=== PATIENT | female | born 1955 | race Two or more races ===

== ENCOUNTER 2016-12-10 15:55 | Emergency (ER) | payer OTHER ==
--- NOTE | 2016-12-10 17:39 | ED ---
General Adult HPI - General Chief complaint: Back Pain/Injury Stated complaint: Back Pain, Abnormal EKG Time Seen by Provider: 12/10/16 16:30 Source: patient, RN notes reviewed Mode of arrival: ambulatory Limitations: no limitations - History of Present Illness Initial comments: This is a 61-year-old female who presents to the emergency complaining that since last night at 5:00 after eating some ribs she was unable to swallow any water or food. Patient states that continued throughout the day today and finally tonight she decided to come in to be evaluated. Patient states she's even had to cough up her saliva. Patient states it also hurts when she swallows anything. Patient denies any difficulty breathing or shortness of breath. Patient denies any other symptoms. Patient states this has not happened in the past per patient doesn't believe she got any bones in the food but she states it might be possible. Patient denies any recent fever or chills. - Related Data Home Medications Medication Instructions Recorded Confirmed Levothyroxine Sodium [Synthroid] 100 mcg PO DAILY 12/10/16 12/10/16 Losartan-Hctz 50-12.5 mg [Hyzaar 1 tab PO DAILY 12/10/16 12/10/16 50-12.5] Potassium Chloride ER [K-Dur 10] 10 meq PO DAILY 12/10/16 12/10/16 Simvastatin(Unknown) 1 tab PO DAILY 12/10/16 12/10/16 Allergies Allergy/AdvReac Type Severity Reaction Status Date / Time No Known Allergies Allergy Unverified 12/10/16 17:16 Review of Systems ROS Statement: Those systems with pertinent positive or pertinent negative responses have been documented in the HPI. ROS Other: All systems not noted in ROS Statement are negative. Past Medical History Past Medical History: Hyperlipidemia, Hypertension, Thyroid Disorder History of Any Multi-Drug Resistant Organisms: None Reported Past Surgical History: Tubal Ligation Past Psychological History: No Psychological Hx Reported Smoking Status: Current every day smoker Past Alcohol Use History: Rare Past Drug Use History: None Reported General Exam - General Exam Comments Initial Comments: GENERAL: Patient is well-developed and well-nourished. Patient is nontoxic and well- hydrated and is in mild distress. ENT: Neck is soft and supple. No significant lymphadenopathy is noted. Oropharynx is clear. Moist mucous membranes. Neck has full range of motion without eliciting any pain. EYES: The sclera were anicteric and conjunctiva were pink and moist. Extraocular movements were intact and pupils were equal round and reactive to light. Eyelids were unremarkable. PULMONARY: Unlabored respirations. Good breath sounds bilaterally. No audible rales rhonchi or wheezing was noted. CARDIOVASCULAR: There is a regular rate and rhythm without any murmurs gallops or rubs. ABDOMEN: Soft and nontender with normal bowel sounds. No palpable organomegaly was noted. There is no palpable pulsatile mass. SKIN: Skin is clear with no lesions or rashes and otherwise unremarkable. NEUROLOGIC: Patient is alert and oriented x3. Cranial nerves II through XII are grossly intact. Motor and sensory are also intact. Normal speech, volume and content. Symmetrical smile. MUSCULOSKELETAL: Normal extremities with adequate strength and full range of motion. No lower extremity swelling or edema. No calf tenderness. LYMPHATICS: No significant lymphadenopathy is noted PSYCHIATRIC: Normal psychiatric evaluation. Limitations: no limitations Course Vital Signs 12/10/16 12/10/16 12/10/16 15:56 18:29 19:29 Temperature 97.6 F 97.1 F L Pulse Rate 71 73 67 Respiratory 20 17 16 Rate Blood Pressure 211/103 181/104 145/81 O2 Sat by Pulse 97 95 98 Oximetry Medical Decision Making - Medical Decision Making I gave the patient Valium and Reglan as well as nitroglycerin sublingual and glucagon. After a few minutes it went back to reevaluate the patient patient was able to swallow water any cello any crackers. EKG was done on this patient showed a normal sinus rhythm at 62 bpm AL interval is 150 QRS is 96 QT interval is 416 QTC is 422 patient's EKG showed no ST segment elevation or depression or T-wave abdomen is noted. Disposition Clinical Impression: Esophageal foreign body Disposition: HOME SELF-CARE Condition: Good Instructions: Esophageal Foreign Body (ED) Additional Instructions: Patient should follow-up with gastroenterology. Referrals: Kamaljit Mcleod DO [Primary Care Provider] - 1-2 days Time of Disposition: 19:19
--- NOTE | 2016-12-10 17:57 | XR ---
EXAMINATION TYPE: XR soft tissue neck DATE OF EXAM: 12/10/2016 5:53 PM COMPARISON: NONE HISTORY: Difficulty swallowing TECHNIQUE: 2 views FINDINGS: The epiglottis appears normal. Subglottic trachea appears normal. Tonsils and adenoids appe ar normal. Cervical spine appears intact. IMPRESSION: Negative cervical soft tissue exam.
[2016-12-10] MEDS ORDERED: METOCLOPRAMIDE 5 MG/ML 2 ML VIAL IVP STA (18:03)
[2016-12-10] MEDS ORDERED: NITROGLYCERIN SL TABS 0.4 MG TAB SUBLINGUAL STA (18:03)
[2016-12-10] MEDS ORDERED: GLUCAGON 1 MG/ML VIAL IVP STA (18:03)
[2016-12-10] MEDS ORDERED: DIAZEPAM 5 MG/ML 2 ML SYRINGE IVP STA (18:03)
[2016-12-10 19:31] VITALS: BP 145/81; PULSE 67; RESP 16; TEMP 97.1
== END 2016-12-10 19:28 | disposition home or self-care (01) ==
LOC: EC 15:55
DX: T18.108A Unspecified foreign body in esophagus causing other injury, initial encounter (principal); R05 Cough; I10 Essential (primary) hypertension; E78.5 Hyperlipidemia, unspecified; E07.9 Disorder of thyroid, unspecified; F17.200 Nicotine dependence, unspecified, uncomplicated; Z79.899 Other long term (current) drug therapy
CPT/HCPCS: 93005; 70360; 99283; 96374; 96375; J1610; J2765; J3360

== ENCOUNTER 2017-12-02 08:42 | Emergency (ER) | payer OTHER ==
[2017-12-02] MEDS ORDERED: MECLIZINE 12.5 MG TAB PO STA (09:27)
[2017-12-02] MEDS ORDERED: LORazepam 1 MG TAB PO STA (09:29)
[2017-12-02 10:19] VITALS: RESP 20
[2017-12-02 10:20] LABS: Basophils # (A) 0.1 k/uL (0-0.2); Basophils % (A) 1 %; Eosinophils % (A) 1 %; HCT 40.9 % (34.0-46.0); HGB 13.8 gm/dL (11.4-16.0); Lymphocytes # (A) 1.4 k/uL (1.0-4.8); Lymphocytes % (A) 26 %; MCH 28.6 pg (25.0-35.0); MCHC 33.8 g/dL (31.0-37.0); MCV 84.6 fL (80.0-100.0); Mean Platelet Volume 6.7; Monocytes # (A) 0.3 k/uL (0-1.0); Monocytes % (A) 6 %; Neutrophils # (A) 3.5 k/uL (1.3-7.7); Neutrophils % (A) 65 %; Platelet Count 339 k/uL (150-450); RBC 4.84 m/uL (3.80-5.40); RDW 12.6 % (11.5-15.5); WBC 5.4 k/uL (3.8-10.6)
[2017-12-02 10:28] LABS: ALT 64 U/L (9-52); AST 41 U/L (14-36); Albumin 4.6 g/dL (3.5-5.0); Alkaline Phosphatase 96 U/L (38-126); Anion Gap 11 mmol/L; Blood Urea Nitrogen 13 mg/dL (7-17); Calcium 9.8 mg/dL (8.4-10.2); Carbon Dioxide 29 mmol/L (22-30); Chloride 101 mmol/L (98-107); Glucose 107 mg/dL (74-99); Potassium 3.9 mmol/L (3.5-5.1); Sodium 141 mmol/L (137-145); Total Bilirubin 0.6 mg/dL (0.2-1.3)
--- NOTE | 2017-12-02 10:30 | XR ---
EXAMINATION TYPE: XR chest 1V portable DATE OF EXAM: 12/02/2017 COMPARISON: NONE HISTORY: Pneumonia TECHNIQUE: Single frontal view of the chest is obtained. FINDINGS: No acute consolidation. No pleural effusion or pneumothorax. No overt failure. Arthropathy of the shoulders. IMPRESSION: No acute process.
--- NOTE | 2017-12-02 10:36 | CT ---
EXAMINATION TYPE: CT brain wo con DATE OF EXAM: 12/02/2017 COMPARISON: NONE HISTORY: 62-year-old female Dizziness with nausea. Positive HTN w/meds. No prior history of CVA/TIA TECHNIQUE: Examination was done in axial plane without intravenous contrast. Coronal and sagittal r econstructions performed. CT DLP: 961.00 mGycm Automated exposure control for dose reduction was used. FINDINGS: There is no evidence of acute intracranial hemorrhage, acute ischemic changes, mass, mass-effect, or extra-axial fluid collection. There is no effacement of cerebral sulci or basal subarachnoid cister ns. There is no hydrocephalus. There is no midline shift. Shine-white matter distinction is preserv ed. Slight rightward nasal septal deviation. Paranasal sinuses and mastoid air cells well pneumatized. Or bits and globes are intact. IMPRESSION: No acute intracranial abnormality seen.
--- NOTE | 2017-12-02 11:08 | ED ---
Dizziness HPI - General Chief Complaint: Dizziness Stated Complaint: Dizziness Time Seen by Provider: 12/02/17 09:00 Source: patient, family Mode of arrival: wheelchair Limitations: no limitations - History of Present Illness Initial Comments: 62 years old female has a dizziness gone on for 3 days she was seen in [facility] she said she had workup done there and it was normal he also had some tingling on the both sides of the face today and she denies any problem with vision she denies any weakness of upper or lower extremity she denies any trouble talking she denies trouble comprehending area he does have a history of hypertension and blood pressure was quite high blood pressure was 192 /94 on arrival him in review of system is unremarkable otherwise - Related Data Home Medications Medication Instructions Recorded Confirmed Levothyroxine Sodium [Synthroid] 100 mcg PO DAILY 12/10/16 12/02/17 Losartan-Hctz 50-12.5 mg [Hyzaar 1 tab PO DAILY 12/10/16 12/02/17 50-12.5] Potassium Chloride ER [K-Dur 10] 10 meq PO DAILY 12/10/16 12/02/17 Albuterol Sulfate [Proair Hfa] 1 - 2 puff INHALATION RT-Q6H PRN 12/02/17 Aspirin EC [Ecotrin Low Dose] 81 mg PO HS 12/02/17 12/02/17 Simvastatin [Zocor] 20 mg PO HS 12/02/17 12/02/17 Previous Rx's Medication Instructions Recorded Amoxicillin 500 mg PO Q8H #30 capsule 12/02/17 Meclizine [Antivert] 25 mg PO TID PRN #15 tab 12/02/17 Allergies Allergy/AdvReac Type Severity Reaction Status Date / Time No Known Allergies Allergy Verified 12/02/17 09:01 Review of Systems ROS Statement: Those systems with pertinent positive or pertinent negative responses have been documented in the HPI. ROS Other: All systems not noted in ROS Statement are negative. Past Medical History Past Medical History: Hyperlipidemia, Hypertension, Thyroid Disorder History of Any Multi-Drug Resistant Organisms: None Reported Past Surgical History: Tubal Ligation Past Psychological History: No Psychological Hx Reported Smoking Status: Current every day smoker Past Alcohol Use History: Rare Past Drug Use History: None Reported General Exam - General Exam Comments Initial Comments: General: The patient is awake and alert, in mild distress, GCS is 15 Skin: Skin is warm and dry and no rashes or lesions are noted. Eye: Pupils are equal, round and reactive to light, extra-ocular movements are intact; there is normal conjunctiva bilaterally. Ears, nose, mouth and throat: Noticed fluid behind both tympanic membranes Neck: The neck is supple, there is no tenderness or JVD. Cardiovascular: There is a regular rate and rhythm. No murmur, rub or gallop is appreciated. Respiratory: To auscultation bilateral, no wheezing no rhonchi no distress respiratory arredondo noticed Gastrointestinal: Soft, non-distended, non-tender abdomen without masses or organomegaly noted. There is no rebound or guarding present. Bowel sounds are unremarkable. Back: There is no tenderness to palpation in the midline. There is no obvious deformity. Musculoskeletal: Normal ROM, no tenderness, There is no pedal edema. There is no calf tenderness or swelling. No cords were appreciated. Neurological: CN II-XII intact, Cranial nerves III through XII are intact. There are no obvious motor or sensory deficits. Coordination appears grossly intact. Speech is normal. No motor or sensory deficits noticed Psychiatric: Cooperative, appropriate mood & affect, normal judgment. Limitations: no limitations Course Vital Signs 12/02/17 12/02/17 08:45 10:00 Temperature 97.9 F Pulse Rate 86 84 Respiratory 16 20 Rate Blood Pressure 192/94 165/91 O2 Sat by Pulse 97 98 Oximetry She was reassessed at term 11 AM, a CBC, comprehensive metabolic panel, troponin , EKG, head CT, chest x-ray are unremarkable and is to her blood pressure was 192 systolic it came down to 165 she has been compliant with her medications she was advised to monitor her blood pressure daily and follow-up with her family doctor she agreed with that. She will be started on some mom antibiotics as well as a course of antibiotics and she agreed to come back if symptoms get worse. She was offered inpatient observation to address the possibility of a brain stem infarct which obviously would drop in the head CT but she prefers to go home she said she feels better she is able to ambulate and she has no neuro deficits EKG Findings - EKG Comments: EKG Findings:: EKG is normal sinus rhythm ventricular rate is 66 OK interval is 144 QRS duration is 94 QT/QTc is 400/419 and 50 mL EKG does not reveal any STEMI noticed a T-wave inversion in lead 3, this EKG was compared with the old EKG done back in 12/10/2016 she had a T-wave inversion in lead 3 as well Medical Decision Making - Lab Data Result diagrams: 12/02/17 09:50 12/02/17 09:50 Lab Results 12/02/17 12/02/17 12/02/17 Range/Units 09:50 09:50 09:50 WBC 5.4 (3.8-10.6) k/uL RBC 4.84 (3.80-5.40) m/uL Hgb 13.8 (11.4-16.0) gm/dL Hct 40.9 (34.0-46.0) % MCV 84.6 (80.0-100.0) fL MCH 28.6 (25.0-35.0) pg MCHC 33.8 (31.0-37.0) g/dL RDW 12.6 (11.5-15.5) % Plt Count 339 (150-450) k/uL Neutrophils % 65 % Lymphocytes % 26 % Monocytes % 6 % Eosinophils % 1 % Basophils % 1 % Neutrophils # 3.5 (1.3-7.7) k/uL Lymphocytes # 1.4 (1.0-4.8) k/uL Monocytes # 0.3 (0-1.0) k/uL Eosinophils # 0.0 (0-0.7) k/uL Basophils # 0.1 (0-0.2) k/uL Sodium 141 (137-145) mmol/L Potassium 3.9 (3.5-5.1) mmol/L Chloride 101 (98-107) mmol/L Carbon Dioxide 29 (22-30) mmol/L Anion Gap 11 mmol/L BUN 13 (7-17) mg/dL Creatinine 0.76 (0.52-1.04) mg/dL Est GFR (MDRD) Af Amer >60 (>60 ml/min/1.73 sqM) Est GFR (MDRD) Non-Af >60 (>60 ml/min/1.73 sqM) Glucose 107 H (74-99) mg/dL Calcium 9.8 (8.4-10.2) mg/dL Total Bilirubin 0.6 (0.2-1.3) mg/dL AST 41 H (14-36) U/L ALT 64 H (9-52) U/L Alkaline Phosphatase 96 (38-126) U/L Troponin I <0.012 (0.000-0.034) ng/mL Total Protein 8.0 (6.3-8.2) g/dL Albumin 4.6 (3.5-5.0) g/dL Disposition Clinical Impression: Dizziness, Hypertension, Otitis media Disposition: HOME SELF-CARE Condition: Good Instructions: Dizziness (ED) Prescriptions: Amoxicillin 500 mg PO Q8H #30 capsule Meclizine [Antivert] 25 mg PO TID PRN #15 tab PRN Reason: dizzyness Referrals: Kamaljit Mcleod DO [Primary Care Provider] - 1-2 days
[2017-12-02 11:30] VITALS: BP 154/90; PULSE 88; TEMP 98
== END 2017-12-02 11:30 | disposition home or self-care (01) ==
LOC: EC 08:42
DX: I10 Essential (primary) hypertension (principal); R42 Dizziness and giddiness; H66.90 Otitis media, unspecified, unspecified ear; R40.2412 Glasgow coma scale score 13-15, at arrival to emergency department; R20.2 Paresthesia of skin; E78.5 Hyperlipidemia, unspecified; E07.9 Disorder of thyroid, unspecified; F17.200 Nicotine dependence, unspecified, uncomplicated; Z79.82 Long term (current) use of aspirin; Z79.899 Other long term (current) drug therapy
CPT/HCPCS: 36415; 70450; 71045; 80053; 84484; 85025; 93005; 99284

== ENCOUNTER → 2018-08-24 | Outpatient (CLI) | payer OTHER ==
--- NOTE | 2018-08-24 21:06 | MR ---
EXAMINATION TYPE: MR knee RT wo con DATE OF EXAM: 08/24/2018 COMPARISON: Outside right knee x-ray July 28, 2018 HISTORY: Rt knee pain/medial x 6 mos, no trauma TECHNIQUE: Multiplanar, multisequence images of the knee is performed without IV contrast. FINDINGS: MEDIAL MENISCUS: Anterior and posterior horns are intact without tear. LATERAL MENISCUS: Anterior and posterior horns are intact without tear. CRUCIATE LIGAMENTS: The anterior and posterior cruciate ligaments are intact and unremarkable. COLLATERAL LIGAMENTS: The medial collateral ligament and lateral collateral ligament complex are inta ct. Mild fluid signal surrounds medial collateral ligament coronal image 19. EXTENSOR MECHANISM: Visualized quadriceps and patellar tendons are intact. Prominent spur anterior ha perior patella is noted. EFFUSION: No significant suprapatellar joint effusion. POPLITEAL CYST: There is a small popliteal/zepeda cyst axial image 13. TRICOMPARTMENT SPACES: There is mild joint space loss patellofemoral and medial tibiofemoral compartm ents. CARTILAGE: Tricompartment articular cartilage is fairly well maintained. BONE MARROW SIGNAL: No focal abnormal marrow signal is appreciated. OTHER: No additional significant abnormality is appreciated. IMPRESSION: 1. Mild MCL sprain injury. No full thickness meniscal or ligamentous tear. 2. Small popliteal cyst. 3. Mild tricompartment degenerative changes.
== END | disposition home or self-care (01) ==
LOC: RADMRIMAIN 16:52
PROVIDERS: ATTEND Orthopaedic Surgery
DX: S83.411A Sprain of medial collateral ligament of right knee, initial encounter (principal); M71.21 Synovial cyst of popliteal space [Baker], right knee; M17.11 Unilateral primary osteoarthritis, right knee